=== PATIENT | female | born 1980 | race Caucasian/White ===

== ENCOUNTER 2018-11-09 15:36 | Inpatient (IN) | payer OTHER ==
[~2018-11-09] VITALS: Ht 157.5 cm; Wt 72.6 kg
[2018-11-09 16:47] LABS: BASOPHILS ABSOLUTE AUTO 0.04 K/mm3 (0.00-0.23); BASOPHILS PERCENT AUTO 0 % (0-2); EOSINOPHILS ABSOLUTE AUTO 0.09 K/mm3 (0.00-0.68); EOSINOPHILS PERCENT AUTO 1 % (0-6); Hematocrit 41.4 % (33.0-51.0); Hemoglobin 13.4 g/dL (11.5-16.0); IMMATURE GRAN ABSOLUTE AUTO 0.08 K/mm3 (0.00-0.10); IMMATURE GRAN PERCENT AUTO 1 % (0-1); LYMPHOCYTES ABSOLUTE AUTO 2.11 K/mm3 (0.84-5.20); LYMPHOCYTES PERCENT AUTO 14 % (21-46); MONOCYTES ABSOLUTE AUTO 0.77 K/mm3 (0.16-1.47); MONOCYTES PERCENT AUTO 5 % (4-13); Mean Corpuscular HGB 29.9 pg (26.0-34.0); Mean Corpuscular HGB Conc 32.4 g/dL (31.5-36.5); Mean Corpuscular Volume 92 fL (80-100); Mean Platelet Volume 9.8 fL (9.1-12.4); NEUTROPHILS ABSOLUTE AUTO 11.57 K/mm3 (1.96-9.15); NEUTROPHILS PERCENT AUTO 79 % (41-73); Platelet Count 286 K/mm3 (150-400); RDW Standard Deviation 44.7 fL (35.1-46.3); Red Blood Cell Count 4.48 M/mm3 (3.80-5.20); White Blood Cell Count 14.66 K/mm3 (4.00-11.30)
[2018-11-09 17:08] LABS: Anion Gap 9 mmol/L (6-16); Blood Urea Nitrogen 9 mg/dL (8-24); CO2, Blood 24 mmol/L (21-32); Calcium, Blood 8.5 mg/dL (8.5-10.1); Chloride, Blood 105 mmol/L (98-108); Creatinine, Blood 0.75 mg/dL (0.40-1.00); Glomerular Filtration Rate >60 (60-); Glucose, Blood 101 mg/dL (70-99); Potassium, Blood 3.7 mmol/L (3.5-5.5); Sodium, Blood 138 mmol/L (136-145)
--- NOTE | 2018-11-09 20:55 | NUR ---
RECEIVED HAND OFF FROM ER NURSE USING SBAR. TRANSPORTED TO ROOM 218 VIA STRETCHER. TRANSFERED SELF WITH STANDBY ASSIST TO BED AFTER USING BSC. SAND NOTED ON BACK AND IN CREVICES. PERICARE PERFORMED BEFORE PT GOT INTO BED. AAO X3, LUCIO FOLLOWS ALL COMMANDS. ORIENTED TO ROOM, CALL SYSTEM, AND POC, VOICES UNDERSTANDING. LLE WRAPPED IN [place] WRAP OVER SPLINTING CAST. LEG ELEVATED ON PILLOW. RIGHT AC 20G PIV IS PATENT, FLUSHING WITH EASE WHILE INFUSING D5LR AT 100ML/HR. ADMISSION ASSESSMENT IN PROGRESS. SAFETY MEASURES IN PLACE. WILL CONTINUE TO MONITOR.
--- NOTE | 2018-11-10 05:31 | NUR ---
SPOKE TO PARENTS (SHAWN AND JUANPABLO VIA SPEAKER PHONE)WHO ARE CURRENTLY ON VACATION OUT OF STATE. THEY WERE CONCERNED ABOUT NEEDING TO COME HOME TO BE NEARER TO PT. UPDATE GIVEN STATING THAT PT IS RESTING COMFORTABLY AND THAT SURGEON WILL VISIT THIS MORNING AND DETERMINE WHEN PT WILL GO TO OR. PARENTS VOICED UNDERSTANDING. ASKED NURSING TO TELL PT THAT THEY CALLED TO CHECK SHE IS LOVED. NURSING INSTRUCTED THEM TO CALL AT ANYTIME TO CHECK ON PT. SAFETY MEASURES IN PLACE. WILL CONTINUE TO MONITOR.
--- NOTE | 2018-11-10 06:07 | NUR ---
LYING IN SEMI FOWLERS WITH EYES CLOSED. PAIN IS MANAGED WITH CURRENT ORDERS. DENIES FURTHER NEEDS AT THIS TIME. SAFETY MEASURES IN PLACE. WILL GIVE HAND OFF TO ONCOMING SHIFT USING SBAR.
--- NOTE | 2018-11-10 14:05 | NUR ---
INTO SDS VIA BED. PT REPORTS 2/10 PAIN TO LEFT LEG. HISTORY AND ALLERGIES REVIEWED.NPO STATUS CONFIRMED. LUNGS CLEAR-SATS 100% ON RA.
--- NOTE | 2018-11-10 14:19 | NUR ---
PT TO DAY SURGERY AT APPROXIMATELY 1400.
--- NOTE | 2018-11-10 15:48 | NUR ---
11/10/18 1548 Irene García ANCEF 2GM IVPB GIVEN AT 1440. BUPIVICAINE 0.5MG WITH EPINEPHRINE 10 ML AT INCISION SITE.
--- NOTE | 2018-11-10 19:38 | NUR ---
SHIFT SUMMARY PT A&OX4, VSS, S/P L TIBIA RODDING, SPLINT/ACEWRAP, ELEVATED. AMB W/1 PP MOD ASSIST TO BSC, NWB. VOIDING WELL. PAIN MANAGED PER EMAR. SAHRA PO, DENIES N&V. WILL CTM & TX PER EMAR UNTIL REPORT GIVEN TO ONCOMING NOC RN.
--- NOTE | 2018-11-11 06:15 | NUR ---
SUMMARY POD #1 VSS, DRSG REMAINS C/D/I, CIRC WNL, LEG ELEVATED ON PILLOWS. PT CAN WIGGLE TOES, DENIES N/T. PAIN MANAGED PER EMAR. TOLERATING PO INTAKE. PT NWB UNTIL WB STATUS CLARIFIED THIS AM. PT VOIDING WNL. 1 ASSIST TO BSC, PAIN MANAGED WITH PO PAIN MEDICINE. WCTM. CALL LIGHT IN REACH
--- NOTE | 2018-11-11 18:53 | NUR ---
SHIFT SUMMARY PT HAS DONE WELL TODAY BUT WAS UNABLE TO AMBULATE VERY FAR AND HAS SOME COMCERNS OF GOING HOME TODAY DUE TO BEING ALONE TONIGHT. ARRANGEMENTS BEING MADE AND THERAPY WILL WORK WITH HER AGAIN TOMORROW. PT HOPEFUL TO D/C TOMRROW.
--- NOTE | 2018-11-12 04:26 | NUR ---
SHIFT SUMMARY: PT POD #2 L TIBIA RODDING. NO ACUTE CHANGES OVERNIGHT. PAIN MANAGED WITH SCHED TORADOL, TYLENOL AND OXY 10 MG PER EMAR. DENIES N/V AND ANY N/T. SPLINT AND ICE IN PLACE. ONE SBA. SALINE LOCKED. DRINKING ADEQUATE PO FLUIDS AND VOIDING. PLAN IS FOR PT TO DISCHARGE TODAY.
[2018-11-12] MEDS ORDERED: ACET500 PO (11:42)
[2018-11-12] MEDS ORDERED: OXYC5 PO (11:43)
== END 2018-11-12 13:20 | disposition home or self-care (01) | DRG 494 ==
LOC: ER 15:36 → SURS 15:37
PROVIDERS: Internal Medicine; ADMIT Orthopaedic Surgery
PROC: 0QSH06Z Reposition Left Tibia with Intramedullary Internal Fixation Device, Open Approach (ICD-10-PCS; principal; 2018-11-10 16:00)
DX: S82.232A Displaced oblique fracture of shaft of left tibia, initial encounter for closed fracture (principal); S62.621A Displaced fracture of middle phalanx of left index finger, initial encounter for closed fracture; V80.010A Animal-rider injured by fall from or being thrown from horse in noncollision accident, initial encounter; Y93.89 Activity, other specified; Y92.9 Unspecified place or not applicable; Z88.8 Allergy status to other drugs, medicaments and biological substances
CPT/HCPCS: 29505; 73130; 73590; 80048; 81025; 85025; 96361; 96374; 96376; 97110; 97116; 97162; 97530; 99285-25; C1713; C1769; J0690; J1100; J1170; J1885; J2250; J2405; J3010; J7120; Q0163

== ENCOUNTER → 2023-07-09 | Outpatient (CLI) | payer OTHER ==
[~2023-07-09] MED LIST: ACET500 PO; OXYC5 PO
[2023-07-09 09:32] LABS: BASOPHILS ABSOLUTE AUTO 0.02 K/mm3 (0.00-0.23); BASOPHILS PERCENT AUTO 0 % (0-2); EOSINOPHILS ABSOLUTE AUTO 0.08 K/mm3 (0.00-0.68); EOSINOPHILS PERCENT AUTO 1 % (0-6); Hematocrit 41.6 % (33.0-51.0); Hemoglobin 13.3 g/dL (11.5-16.0); IMMATURE GRAN ABSOLUTE AUTO 0.02 K/mm3 (0.00-0.10); IMMATURE GRAN PERCENT AUTO 0 % (0-1); LYMPHOCYTES ABSOLUTE AUTO 2.21 K/mm3 (0.84-5.20); LYMPHOCYTES PERCENT AUTO 32 % (21-46); MONOCYTES ABSOLUTE AUTO 0.35 K/mm3 (0.16-1.47); MONOCYTES PERCENT AUTO 5 % (4-13); Mean Corpuscular HGB 29.7 pg (26.0-34.0); Mean Corpuscular Volume 93 fL (80-100); Mean Platelet Volume 10.5 fL (9.1-12.4); NEUTROPHILS ABSOLUTE AUTO 4.21 K/mm3 (1.96-9.15); NEUTROPHILS PERCENT AUTO 61 % (41-73); Platelet Count 305 K/mm3 (150-400); RDW Coefficient Variation 13.3 % (11.7-14.2); RDW Standard Deviation 45.2 fL (35.1-46.3); Red Blood Cell Count 4.48 M/mm3 (3.80-5.20); White Blood Cell Count 6.89 K/mm3 (4.00-11.30)
[2023-07-09 16:54] LABS: Albumin/Globulin Ratio 1.4 (0.8-1.8); Bilirubin, Total 0.6 mg/dL (0.1-1.0); Bun/Creatinine Ratio 19.2 (12.0-20.0); Calcium, Blood 8.5 mg/dL (8.5-10.1); Creatinine, Blood 0.78 mg/dL (0.40-1.00); Globulin, Blood 2.8 g/dL (2.2-4.0); Potassium, Blood 4.2 mmol/L (3.5-5.5); Total Protein, Blood 6.8 g/dL (6.4-8.2)
== END ==
LOC: LAB SHORT 08:13 → LAB 08:13
PROVIDERS: Nurse Practitioner Psychiatric/Mental Health
DX: F41.1 Generalized anxiety disorder (principal)
CPT/HCPCS: 80053; 85025

== ENCOUNTER → 2024-10-05 | Outpatient (CLI) | payer OTHER | END | disposition home or self-care (01) | LOC: LAB SHORT 18:35 → LAB 18:35 | DX: S31.109A Unspecified open wound of abdominal wall, unspecified quadrant without penetration into peritoneal cavity, initial encounter (principal) | CPT/HCPCS: 87070; 87205 ==